=== PATIENT | female | born 1975 | race Caucasian/White ===

== ENCOUNTER → 2016-07-25 | Outpatient (CLI) | payer OTHER ==
--- NOTE | 2016-07-25 11:49 | US ---
Bilateral breast ultrasound History: Extremely dense breast tissue at mammography. Possible lobulated mass inferior central aspec t of each breast. Findings: Left breast: There is normal dense underlying breast parenchymal tissue anterior to the implant witho ut evidence of solid or cystic mass. Right breast: There is normal dense underlying breast parenchymal tissue anterior to the implant with out evidence of solid or cystic mass. Impression: Benign findings ultrasound bilateral breast. BI-RADS 2 Dense mammographic pattern limits the sensitivity of mammography in this patient. If there is a clini paula palpable abnormality, recommend additional imaging with ultrasound, if clinically indicated. Th e results of this study were reviewed with the patient. Routine annual mammographic followup recommended.
== END ==
LOC: FIMAGING 10:53
PROVIDERS: ATTEND Radiology Diagnostic Radiology
DX: R92.2 Inconclusive mammogram (principal)

== ENCOUNTER → 2018-01-08 | Outpatient (CLI) | payer OTHER | LOC: FIMAGING 09:36 | PROVIDERS: ATTEND Internal Medicine Endocrinology, Diabetes & Metabolism | DX: Z13.820 Encounter for screening for osteoporosis (principal); M81.0 Age-related osteoporosis without current pathological fracture ==

== ENCOUNTER → 2018-04-24 | Outpatient (CLI) | payer OTHER | LOC: FIMAGING 08:50 | PROVIDERS: ATTEND Obstetrics & Gynecology | DX: N60.02 Solitary cyst of left breast (principal) ==